=== PATIENT | male | born 1950 | race Caucasian/White ===

== ENCOUNTER → 2017-06-16 | Outpatient (CLI) | payer OTHER ==
[~2017-06-16] MED LIST: ALBU8.5H8 INH; ASPI-496 PO; BUDE10.2 INH; CHOL100011 PO; CHOL200024 PO; CHOL5000 PO; DOCU-131 PO; FURO40TA6 PO; LISI1TAB5 PO; METF500T4 PO; METF500T9 PO; MOME17SP INH; NAPR250T PO; POTASSIUM PO; SIMV40TA3 PO; TAMS-11 PO; TIOT18CA INH
== END ==
LOC: CFH 13:54
PROVIDERS: ATTEND Internal Medicine
DX: J43.2 Centrilobular emphysema (principal); K80.20 Calculus of gallbladder without cholecystitis without obstruction; J96.11 Chronic respiratory failure with hypoxia
CPT/HCPCS: 71250

== ENCOUNTER → 2018-07-31 | Outpatient (CLI) | payer OTHER ==
[~2018-07-31] MED LIST changes: +ALBU18HF INH; +CRAN250C PO; +FLUT1AER INH; +FURO20TA3 PO; +METF500T17 PO; -METF500T4 PO; +MULT-326 PO; +NAPR-685 PO; +OMEP20TA62 PO; +POTA10TA12 PO; +UMEC62.5 INH
== END | disposition home or self-care (01) ==
LOC: STAR 09:45
PROVIDERS: ATTEND Orthopaedic Surgery
DX: Z01.818 Encounter for other preprocedural examination (principal); M25.572 Pain in left ankle and joints of left foot; M54.16 Radiculopathy, lumbar region; G89.29 Other chronic pain; Y99.8 Other external cause status; Z79.899 Other long term (current) drug therapy; Z88.8 Allergy status to other drugs, medicaments and biological substances
CPT/HCPCS: 93005

== ENCOUNTER 2018-08-10 08:31 | Day surgery (SDC) | payer OTHER ==
[~2018-08-10] VITALS: Ht 185.4 cm; Wt 92.8 kg
[2018-08-10 08:58] VITALS: BP 139/89
[2018-08-10] MEDS ORDERED: LACTATED RINGERS 1,000 ML IV SCH (09:01)
[2018-08-10] MEDS ORDERED: MIDAZOLAM 1 MG/ML, 2ML ONE (09:03)
[2018-08-10] MEDS ORDERED: FENTANYL PF 100 MCG/2ML ONE (09:03)
[2018-08-10] MEDS ORDERED: SUCCINYLCHOLINE 20 MG/ML, 10ML ONE (09:39)
[2018-08-10] MEDS ORDERED: EPHEDRINE 50 MG/ML, 1ML ONE (09:39)
[2018-08-10] MEDS ORDERED: PHENYLEPHRINE 10 MG/ML ONE (09:39)
[2018-08-10] MEDS ORDERED: DEXAMETHASONE 4 MG/ML, 1ML ONE (10:09)
[2018-08-10] MEDS ORDERED: PROPOFOL 10 MG/ML, 20ML ONE (10:09)
[2018-08-10] MEDS ORDERED: CEFAZOLIN 1,000 MG ONE (10:09)
[2018-08-10] MEDS ORDERED: ONDANSETRON 2MG/ML, 2ML ONE (10:09)
[2018-08-10] MEDS ORDERED: BUPIVACAINE/PF 0.5% ONE (10:09)
[2018-08-10] MEDS ORDERED: LIDOCAINE-MPF 2% ,5ML ONE ×2 (10:16)
[2018-08-10] MEDS ORDERED: PROMETHAZINE 25 MG/ML, 1ML IV PRN (10:30)
[2018-08-10] MEDS ORDERED: KETOROLAC 30 MG/1 ML IV PRN (10:30)
[2018-08-10] MEDS ORDERED: hydrALAzine 20 MG/ML, 1ML IV PRN (10:30)
[2018-08-10] MEDS ORDERED: OXYcodone 5 MG/5 ML ORAL.SOL UDC PO PRN (10:30)
[2018-08-10] MEDS ORDERED: ONDANSETRON 2MG/ML, 2ML IV PRN (10:30)
[2018-08-10] MEDS ORDERED: MIDAZOLAM 1 MG/ML, 2ML IV PRN (10:30)
[2018-08-10] MEDS ORDERED: FENTANYL PF 100 MCG/2ML IV PRN (10:30)
[2018-08-10] MEDS ORDERED: ALBUTEROL/IPRATROPIUM 2.5MG/0.5MG, 3 ML NPPB PRN (10:30)
[2018-08-10] MEDS ORDERED: ACETAMINOPHEN 325 MG TABLET PO PRN (10:30)
[2018-08-10] MEDS ORDERED: ACETAMINOPHEN 650 MG/20.3 ML UDC ONE (11:18)
[2018-08-10] MEDS ORDERED: OXYcodone 5 MG/5 ML ORAL.SOL UDC ONE (11:19)
== END 2018-08-10 13:30 | disposition home or self-care (01) ==
LOC: OUT 08:31
PROVIDERS: ATTEND Orthopaedic Surgery
DX: M21.6X2 Other acquired deformities of left foot (principal); M24.272 Disorder of ligament, left ankle; M24.672 Ankylosis, left ankle; J44.9 Chronic obstructive pulmonary disease, unspecified; I10 Essential (primary) hypertension; K21.9 Gastro-esophageal reflux disease without esophagitis; E78.5 Hyperlipidemia, unspecified; E11.9 Type 2 diabetes mellitus without complications; Z85.46 Personal history of malignant neoplasm of prostate; Z79.4 Long term (current) use of insulin; Z88.6 Allergy status to analgesic agent; Z88.8 Allergy status to other drugs, medicaments and biological substances; Z98.890 Other specified postprocedural states
CPT/HCPCS: 27695; 29891; 29898; 64445; 64447; C1713; J0330; J0690; J1100; J2250; J2370; J2405; J2704; J3010; J3490; J7120

== ENCOUNTER → 2019-05-14 | Outpatient (CLI) | payer OTHER ==
[~2019-05-14] MED LIST changes: +LISI1TAB19 PO; -LISI1TAB5 PO; +METF500T12 PO; -METF500T9 PO; +[UNRECOGNIZED DRUG - OTHER] PO
[2019-05-14 11:43] LABS: ALANINE AMINOTRANSFERASE 29 U/L (12-78); ALBUMIN 3.9 g/dL (3.4-5.0); ANION GAP 6 mmol/L (5-15); CALCIUM 9.2 mg/dL (8.5-10.1); CHLORIDE 108 mmol/L (98-107)
[2019-05-14 11:45] LABS: ALKALINE PHOSPHATASE 56 U/L (45-117); BILIRUBIN,TOTAL 0.3 mg/dL (0.2-1.0); TOTAL PROTEIN 7.1 g/dL (6.4-8.2)
== END | disposition home or self-care (01) ==
LOC: STAR 10:02
PROVIDERS: ATTEND Orthopaedic Surgery
DX: Z01.810 Encounter for preprocedural cardiovascular examination (principal); M75.121 Complete rotator cuff tear or rupture of right shoulder, not specified as traumatic
CPT/HCPCS: 36415; 80053; 93005

== ENCOUNTER 2019-05-23 11:36 | Day surgery (SDC) | payer OTHER ==
[~2019-05-23] VITALS: Ht 185.4 cm; Wt 89.5 kg
[~2019-05-23 11:36] MED LIST changes: +SIMV40TA20 PO; -SIMV40TA3 PO
[2019-05-23] MEDS ORDERED: MIDAZOLAM 1 MG/ML, 2ML ONE (11:52)
[2019-05-23] MEDS ORDERED: FENTANYL PF 100 MCG/2ML ONE (11:52)
[2019-05-23] MEDS ORDERED: EPINEPHRINE TOPICAL SOLN 1 MG/ML, 30ML ONE (11:56)
[2019-05-23] MEDS ORDERED: BUPIVACAINE/PF-EPI 0.25% 1:200K ONE (11:56)
[2019-05-23 12:12] VITALS: BP 131/80
[2019-05-23] MEDS ORDERED: LACTATED RINGERS 1,000 ML IV SCH (12:15)
[2019-05-23] MEDS ORDERED: SUCCINYLCHOLINE 20 MG/ML, 10ML ONE (12:40)
[2019-05-23] MEDS ORDERED: ROCURONIUM 10MG/ML,5ML ONE (12:40)
[2019-05-23] MEDS ORDERED: NEOSTIGMINE 1 MG/ML, 10ML ONE (12:40)
[2019-05-23] MEDS ORDERED: GLYCOPYRROLATE 0.2MG/1ML, 5ML ONE (12:40)
[2019-05-23] MEDS ORDERED: DEXAMETHASONE 4 MG/ML, 1ML ONE (12:40)
[2019-05-23] MEDS ORDERED: ONDANSETRON 2MG/ML, 2ML ONE (12:40)
[2019-05-23] MEDS ORDERED: PROPOFOL 10 MG/ML, 20ML ONE (12:40)
[2019-05-23] MEDS ORDERED: CEFAZOLIN 1,000 MG ONE (12:40)
[2019-05-23] MEDS ORDERED: ACET325T14 PO (12:47)
[2019-05-23] MEDS ORDERED: LIDOCAINE 4%, 4 ML SYR/CANN TP ONE (13:11)
[2019-05-23] MEDS ORDERED: LIDOCAINE-MPF 2% ,5ML ONE (13:11)
[2019-05-23] MEDS ORDERED: FENTANYL PF 100 MCG/2ML IV PRN (14:00)
[2019-05-23] MEDS ORDERED: HYDROmorphone 2 MG/ML, 1ML IVPush PRN (14:00)
[2019-05-23] MEDS ORDERED: ONDANSETRON ODT 8 MG PO PRN (14:00)
[2019-05-23] MEDS ORDERED: PROMETHAZINE 25 MG SUPP PR PRN (14:00)
[2019-05-23] MEDS ORDERED: LABETALOL 5MG/ML, 20ML IV PRN (14:00)
[2019-05-23] MEDS ORDERED: ONDANSETRON 2MG/ML, 2ML IV PRN (14:00)
[2019-05-23] MEDS ORDERED: hydrALAzine 20 MG/ML, 1ML IV PRN (14:00)
[2019-05-23] MEDS ORDERED: OXYcodone 5 MG/5 ML ORAL.SOL UDC PO PRN (14:00)
[2019-05-23] MEDS ORDERED: ACETAMINOPHEN 325 MG TABLET PO PRN (14:00)
[2019-05-23] MEDS ORDERED: PROMETHAZINE 25 MG/ML, 1ML IV PRN (14:00)
[2019-05-23] MEDS ORDERED: EPHEDRINE 50 MG/ML, 1ML ONE (14:43)
== END 2019-05-23 17:25 | disposition home or self-care (01) ==
LOC: OUT 11:36
PROVIDERS: ATTEND Orthopaedic Surgery
DX: S43.431A Superior glenoid labrum lesion of right shoulder, initial encounter (principal); M75.111 Incomplete rotator cuff tear or rupture of right shoulder, not specified as traumatic; M75.41 Impingement syndrome of right shoulder; M66.821 Spontaneous rupture of other tendons, right upper arm; M94.211 Chondromalacia, right shoulder; F15.90 Other stimulant use, unspecified, uncomplicated; J44.9 Chronic obstructive pulmonary disease, unspecified; Z88.8 Allergy status to other drugs, medicaments and biological substances; Z87.891 Personal history of nicotine dependence; Z99.81 Dependence on supplemental oxygen; Z88.6 Allergy status to analgesic agent; X58.XXXA Exposure to other specified factors, initial encounter; Y93.89 Activity, other specified; Y92.89 Other specified places as the place of occurrence of the external cause; Y99.8 Other external cause status
CPT/HCPCS: 29823; 29826; 29827; 64415; 82962; C1713; J0330; J0690; J1100; J2250; J2405; J2704; J2710; J3010; J7120